=== PATIENT | female | born 1965 | race African-American/Black ===

== ENCOUNTER 2020-06-09 06:55 | Emergency (ER) | payer OTHER ==
[2020-06-09 07:16] VITALS: BP 152/86; PULSE 73; TEMP 98.2; BMI 25.6
[2020-06-09] MEDS ORDERED: ACETAMINOPHEN 1000 MG/100 ML VIAL (NON FORMULARY) IVPB ONE (07:51)
[2020-06-09] MEDS ORDERED: MAG HYDROX/AL HYDROX/SIMETH -MYLANTA- ORAL SUSPENSION PO ONE (07:51)
[2020-06-09] MEDS ORDERED: SODIUM CHLORIDE 1,000 ML IV STA (07:51)
[2020-06-09] MEDS ORDERED: FAMOTIDINE 20 MG/50 ML IVPB 20 MG/50 ML MG IVPB ONE ×2 (07:51→08:20)
[2020-06-09] MEDS ORDERED: ONDANSETRON 4 MG/2 ML VIAL IVPUSH ONE (07:51)
[2020-06-09] MEDS ORDERED: MAG HYDROX/AL HYDROX/SIMETH 30 ML UNIT-DOSE CUP ONE (08:20)
[2020-06-09] MEDS ORDERED: ONDANSETRON 4 MG/2 ML VIAL ONE (08:20)
[2020-06-09] MEDS ORDERED: ACETAMINOPHEN INJECTION 100 ML IVPB ONE (08:20)
[2020-06-09 08:39] LABS: POTASSIUM 3.9 mmol/L (3.5-5.1)
[2020-06-09 08:41] LABS: CALCIUM 9.7 mg/dL (8.5-10.1)
[2020-06-09 08:42] LABS: ALBUMIN 4.2 g/dl (3.4-5.0); BLOOD UREA NITROGEN 17.2 mg/dL (7-18)
[2020-06-09 08:45] LABS: CREATININE 0.8 mg/dL (0.55-1.3)
[2020-06-09 08:46] LABS: BILIRUBIN,TOTAL 0.7 mg/dL (0.2-1)
[2020-06-09 08:53] LABS: BASO % 0.8 % (0-2.0); HEMATOCRIT 44.5 % (32.4-45.2); HEMOGLOBIN 14.9 GM/dL (10.7-15.3); LYMPH % 33.1 % (8-40); MCH 31.1 pg (25.7-33.7); MCHC 33.5 g/dl (32.0-36.0); MEAN CELL VOLUME 92.9 fl (80-96); MEAN PLT VOLUME 8.1 fl (7.5-11.1); MONO % 5.6 % (3.8-10.2); NEUT % 59.5 % (42.8-82.8); PLATELET COUNT 276 K/MM3 (134-434); RBC 4.79 M/mm3 (3.60-5.2); RDW 13.3 % (11.6-15.6)
[2020-06-09 11:04] LABS: EPI CELLS 10 /uL (0-25.1); HYALINE CASTS 0 /uL (0-3.1); URINE APPEARANCE CLEAR; URINE BACTERIA 169 /uL (0-1359); URINE BILIRUBIN NEGATIVE (NEGATIVE); URINE COLOR YELLOW; URINE GLUCOSE (UA) NEGATIVE (NEGATIVE); URINE KETONE NEGATIVE (NEGATIVE); URINE LEUK ESTERASE TRACE (NEGATIVE); URINE NITRITE NEGATIVE (NEGATIVE); URINE PROTEIN NEGATIVE (NEGATIVE); URINE RBC 44 /uL (0-23.9); URINE UROBILINOGEN 0.2 mg/dL (0.2-1.0); URINE WBC 22 /uL (0-25.8)
== END 2020-06-09 09:30 | disposition home or self-care (01) ==
LOC: JER 06:55
PROC: 3E0333Z Introduction of Anti-inflammatory into Peripheral Vein, Percutaneous Approach (ICD-10-PCS; principal; 2020-06-09)
PROC: 3E033GC Introduction of Other Therapeutic Substance into Peripheral Vein, Percutaneous Approach (ICD-10-PCS; 2020-06-09)
PROC: 3E033GC Introduction of Other Therapeutic Substance into Peripheral Vein, Percutaneous Approach (ICD-10-PCS; 2020-06-09)
PROC: 3E0337Z Introduction of Electrolytic and Water Balance Substance into Peripheral Vein, Percutaneous Approach (ICD-10-PCS; 2020-06-09)
DX: K80.20 Calculus of gallbladder without cholecystitis without obstruction (principal)
CPT/HCPCS: 36415; 76705-TC; 80053; 81003; 83690; 85025; 93005; 93010; 99285-25; J0131

== ENCOUNTER 2020-06-15 22:36 | Emergency (ER) | payer OTHER ==
[2020-06-15 22:48] VITALS: BMI 25.6
[2020-06-15] MEDS ORDERED: ONDANSETRON 4 MG/2 ML VIAL IVPUSH ONE (23:17)
[2020-06-15] MEDS ORDERED: FAMOTIDINE 20 MG/50 ML IVPB 20 MG/50 ML MG IVPB ONE (23:17)
[2020-06-15] MEDS ORDERED: ACETAMINOPHEN 1000 MG/100 ML VIAL (NON FORMULARY) IVPB ONE (23:17)
[2020-06-15] MEDS ORDERED: MAG HYDROX/AL HYDROX/SIMETH 30 ML UNIT-DOSE CUP PO ONE (23:17)
[2020-06-15] MEDS ORDERED: SODIUM CHLORIDE 0.9% 500 ML INFUS.BAG IV ONE (23:18)
[2020-06-15 23:45] LABS: BASO % 0.8 % (0-2.0); EOS % 1.4 % (0-4.5); HEMATOCRIT 41.1 % (32.4-45.2); HEMOGLOBIN 13.7 GM/dL (10.7-15.3); LYMPH % 35.4 % (8-40); MCH 30.9 pg (25.7-33.7); MCHC 33.3 g/dl (32.0-36.0); MEAN CELL VOLUME 92.8 fl (80-96); MEAN PLT VOLUME 8.3 fl (7.5-11.1); MONO % 7.8 % (3.8-10.2); NEUT % 54.6 % (42.8-82.8); PLATELET COUNT 288 K/MM3 (134-434); RBC 4.43 M/mm3 (3.60-5.2); RDW 13.2 % (11.6-15.6); WHITE BLOOD COUNT 8.2 K/mm3 (4.0-10.0)
[2020-06-16] MEDS ORDERED: MAG HYDROX/AL HYDROX/SIMETH 30 ML UNIT-DOSE CUP ONE
[2020-06-16] MEDS ORDERED: FAMOTIDINE 20 MG/50 ML IVPB 20 MG/50 ML MG IVPB ONE (00:01)
[2020-06-16] MEDS ORDERED: ONDANSETRON 4 MG/2 ML VIAL ONE (00:02)
[2020-06-16 01:04] LABS: POTASSIUM 4.2 mmol/L (3.5-5.1)
[2020-06-16 01:06] LABS: CALCIUM 9.3 mg/dL (8.5-10.1)
[2020-06-16 01:07] LABS: ALBUMIN 4.1 g/dl (3.4-5.0); BLOOD UREA NITROGEN 17.8 mg/dL (7-18)
[2020-06-16 01:10] LABS: CREATININE 1.1 mg/dL (0.55-1.3)
[2020-06-16 01:11] LABS: BILIRUBIN,TOTAL 0.5 mg/dL (0.2-1); TOT PROT 8.3 g/dl (6.4-8.2)
[2020-06-16 01:42] VITALS: BP 137/77; PULSE 65; TEMP 99
[2020-06-16] MEDS ORDERED: AMPICILLIN NA/SULBACTAM NA 1.5 GM in SODIUM CHLORIDE 100 ML IVPB ONE (03:32)
[2020-06-16] MEDS ORDERED: metroNIDAZOLE 250 MG TABLET ONE (03:44)
[2020-06-16] MEDS ORDERED: AMOX TR/POT CLAV 875MG/125MG TABLETS (FP) ONE (03:45)
[2020-06-16] MEDS ORDERED: AMOX TR/POT CLAV 875MG/125MG TABLETS (FP) PO ONE ×2 (03:45→03:52)
[2020-06-16] MEDS ORDERED: metroNIDAZOLE 250 MG TABLET PO ONE (03:53)
== END 2020-06-16 03:54 | disposition home or self-care (01) ==
LOC: JER 22:36
PROC: 3E0333Z Introduction of Anti-inflammatory into Peripheral Vein, Percutaneous Approach (ICD-10-PCS; principal; 2020-06-15)
PROC: 3E03329 Introduction of Other Anti-infective into Peripheral Vein, Percutaneous Approach (ICD-10-PCS; 2020-06-15)
PROC: 3E033GC Introduction of Other Therapeutic Substance into Peripheral Vein, Percutaneous Approach (ICD-10-PCS; 2020-06-15)
PROC: 3E033GC Introduction of Other Therapeutic Substance into Peripheral Vein, Percutaneous Approach (ICD-10-PCS; 2020-06-15)
DX: K80.20 Calculus of gallbladder without cholecystitis without obstruction (principal); K57.92 Diverticulitis of intestine, part unspecified, without perforation or abscess without bleeding
CPT/HCPCS: 36415; 74177-TC; 80053; 83690; 85025; 99285-25; J0131